=== PATIENT | female | born 1990 | race Caucasian/White ===

== ENCOUNTER 2019-11-03 05:50 | Inpatient (IN) | payer OTHER ==
[~2019-11-03] VITALS: Ht 157.5 cm; Wt 77.1 kg
[2019-11-03] MEDS ORDERED: LACTATED RINGERS 1,000 ML IV SCH (06:28)
[2019-11-03] MEDS ORDERED: OXYTOCIN 20 UNITS in LACTATED RINGERS 1,000 ML IV SCH (06:35)
[2019-11-03] MEDS ORDERED: OXYTOCIN 20 UNITS/LR PREMIX 1,000 ML IV ONE (06:55)
[2019-11-03 07:11] LABS: BILIRUBIN,URINE NEGATIVE (NEGATIVE); BLOOD, URINE 3+ (NEGATIVE); COLOR,URINE YELLOW (YELLOW); LEUKOCYTE ESTERASE ,URINE 1+ (NEGATIVE); NITRITE, URINE NEGATIVE (NEGATIVE); UGLUCOSE NEGATIVE (NEGATIVE)
[2019-11-03 07:13] LABS: APPEARANCE,URINE SLIGHTLY HAZY (CLEAR)
[2019-11-03 07:16] LABS: ALBUMIN 2.7 g/dL (3.4-5.0); ANION GAP 15.8 (8-16); CARBON DIOXIDE 20.8 mmol/L (21-32); CREATININE 0.9 mg/dL (0.6-1.3); POTASSIUM 3.6 mmol/L (3.5-5.1); TOTAL BILIRUBIN 0.7 mg/dL (0.0-1.0)
[2019-11-03 07:37] VITALS: BP 134/74
[2019-11-03 08:12] LABS: BASOPHILS % (AUTO) 0.1 % (0.0-2.0); EOSINOPHILS % (AUTO) 0.1 % (0.0-4.0); HEMATOCRIT 36.6 % (36-48); LYMPHOCYTES % (AUTO) 7.7 % (20.5-51.1); MEAN CORPUSCULAR HEMOGLOBIN 32 pg (27-31); MEAN CORPUSCULAR HGB CONC 33 g/dL (33-37); MEAN CORPUSCULAR VOLUME 95.9 fL (80-94); MONOCYTES # (AUTO) 0.6 K/uL (0.8-1.0); MONOCYTES % (AUTO) 4.6 % (1.7-9.3); NEUTROPHILS # (AUTO) 11.5 K/uL (1.8-7.7); NEUTROPHILS % (AUTO) 87.5 % (42.2-75.2); PLATELET COUNT (AUTO) 163 K/uL (140-450); RED BLOOD CELL COUNT(AUTO) 3.81 MIL/uL (4.20-5.40); RED CELL DISTRIBUTION WIDTH 14.5 % (11.6-13.7); WHITE BLOOD COUNT (AUTO) 13.1 K/uL (4.8-10.8)
[2019-11-03 08:12] LABS: RBC,URINE 20-50 /HPF (0-5)
[2019-11-03] MEDS ORDERED: fentaNYL 0.05 MG/ML VIAL ONE (08:41)
[2019-11-03] MEDS ORDERED: ROPIVACAINE 0.2%/NS PREMIX 200 ML EPI ONE (08:44)
[2019-11-03] MEDS ORDERED: ROPIVACAINE 0.2%/NS PREMIX 100 ML EPI SCH (09:05)
--- NOTE | 2019-11-03 11:22 | NUR ---
PATIENT HAS BEEN SCREENED AND CATEGORIZED LOW NUTRITION RISK. PATIENT WILL BE SEEN WITHIN 7 DAYS OF ADMISSION. 11/10/2019 JAS THOMAS MBA, RD
[2019-11-03] MEDS ORDERED: SIMETHICONE 80 MG TAB.CHEW PO PRN (15:05)
[2019-11-03] MEDS ORDERED: IBUPROFEN 800 MG TAB PO PRN (15:05)
[2019-11-03] MEDS ORDERED: OXYTOCIN 10 UNITS/ML VIAL IM PRN (15:05)
[2019-11-03] MEDS ORDERED: DOCUSATE SODIUM 100 MG GELCAP PO PRN (15:05)
[2019-11-03] MEDS ORDERED: BISACODYL 5 MG TABEC PO PRN (15:05)
[2019-11-03] MEDS ORDERED: BENZOCAINE/MENTHOL 20%-0.5% 60 GM CAN TP PRN (15:05)
[2019-11-03] MEDS ORDERED: METHYLERGONOVINE 0.2 MG TAB PO PRN (15:05)
[2019-11-03] MEDS ORDERED: IBUPROFEN 600 MG TAB PO PRN (15:05)
[2019-11-03] MEDS ORDERED: METHYLERGONOVINE 0.2 MG/ML AMP IM PRN (15:05)
[2019-11-04 10:09] LABS: HEMATOCRIT 31.6 % (36-48); HEMOGLOBIN 10.6 g/dL (12.0-16.0)
== END 2019-11-05 13:25 | disposition home or self-care (01) | DRG 807 ==
LOC: MLD 05:50 → MFCC 18:45
PROVIDERS: ADMIT Obstetrics & Gynecology; ATTEND Obstetrics & Gynecology
PROC: 10E0XZZ Delivery of Products of Conception, External Approach (ICD-10-PCS; principal; 2019-11-03)
PROC: 3E0R3BZ Introduction of Anesthetic Agent into Spinal Canal, Percutaneous Approach (ICD-10-PCS; 2019-11-03)
PROC: 00HU33Z Insertion of Infusion Device into Spinal Canal, Percutaneous Approach (ICD-10-PCS; 2019-11-03)
PROC: 10907ZC Drainage of Amniotic Fluid, Therapeutic from Products of Conception, Via Natural or Artificial Opening (ICD-10-PCS; 2019-11-03)
PROC: 3E0234Z Introduction of Serum, Toxoid and Vaccine into Muscle, Percutaneous Approach (ICD-10-PCS; 2019-11-03)
DX: O80 Encounter for full-term uncomplicated delivery (principal); Z37.0 Single live birth; O63.9 Long labor, unspecified; Z3A.39 39 weeks gestation of pregnancy
CPT/HCPCS: 36415; 51702; 59409; 80053; 81001; 85018; 85025; 86592; 86886; 86900; 86901; 87086; J2590; J2795; J3010; J7120